=== PATIENT | male | born 1990 | race Asian ===

== ENCOUNTER 2021-06-08 15:27 | Outpatient (CLI) | payer BC | END 2021-06-08 15:28 | disposition home or self-care (01) | LOC: BICCT 15:27 | PROVIDERS: ATTEND Family Medicine | DX: R10.9 Unspecified abdominal pain (principal); R31.29 Other microscopic hematuria; R82.90 Unspecified abnormal findings in urine; N13.30 Unspecified hydronephrosis; N28.89 Other specified disorders of kidney and ureter | CPT/HCPCS: 74176 ==

== ENCOUNTER 2021-07-31 13:59 | Outpatient (CLI) | payer BC | END 2021-07-31 14:00 | disposition home or self-care (01) | LOC: BICCT 13:59 | PROVIDERS: ATTEND Urology | DX: R31.29 Other microscopic hematuria (principal); R10.9 Unspecified abdominal pain; R82.90 Unspecified abnormal findings in urine; N13.2 Hydronephrosis with renal and ureteral calculous obstruction | CPT/HCPCS: 74176 ==

== ENCOUNTER 2023-09-04 14:18 | Outpatient (CLI) | payer BC | END 2023-09-04 14:19 | disposition home or self-care (01) | LOC: BICCT 14:18 | PROVIDERS: ATTEND Urology | DX: N20.0 Calculus of kidney (principal) | CPT/HCPCS: 74176 ==

== ENCOUNTER 2023-12-19 10:01 | Outpatient (CLI) | payer BC | END 2023-12-19 10:02 | disposition home or self-care (01) | LOC: BICRAD 10:01 | PROVIDERS: ATTEND Family Medicine | DX: M54.2 Cervicalgia (principal) | CPT/HCPCS: 72040 ==

== ENCOUNTER 2024-07-06 14:57 | Outpatient (CLI) | payer BC | END 2024-07-06 14:58 | disposition home or self-care (01) | LOC: BICRAD 14:57 | PROVIDERS: ATTEND Family Medicine | DX: M79.675 Pain in left toe(s) (principal) ==